=== PATIENT | male | born 1990 | race Hispanic/Latino ===

== ENCOUNTER 2017-01-03 00:23 | Emergency (ER) | payer OTHER ==
[2017-01-03 00:27] VITALS: BP 135/92; PULSE 66; RESP 18; TEMP 98; O2SAT 99
--- NOTE | 2017-01-03 01:41 | ED PDOC ---
HPI: Wound Care - HPI Chief Complaint (Provider): RIGHT forearm laceration x2 History Per: Patient Current Symptoms Are (Timing): Still Present Location Of Injury: Right: Arm (3cm superficial, distal laceration; 4-5cm deep with avulsion laceration proximal to superficial laceration ) Quality Of Symptoms: Painful Severity: Mild Pain Scale Rating Of: 3 Additional Complaint(s): 26M p/w RIGHT forearm laceration x2 occurring after a celebration resulted in a broken beer bottle accidentally lacerating his arm in 2 places. Otherwise, patient denies any numbness/tingling/weakness distal to the lacerations. PMH: None PSH: None Allergies: Amoxicillin (anaphylaxis) <Lashaun Albarado - Last Filed: 01/03/17 02:30> <Kaleb Miranda - Last Filed: 01/03/17 02:36> - HPI Time Seen by Provider: 01/03/17 00:27 Chief Complaint (Nursing): Abnormal Skin Integrity Supervising Attending Note - Attestation: I have personally seen and examined this patient.: Yes I have fully participated in the care of the patient.: Yes I have reviewed all pertinent clinical information, including history, physical exam and plan: Yes <Kaleb Miranda - Last Filed: 01/03/17 02:36> Past Medical History Vital Signs: Last Vital Signs Temp 36.6 C 01/03/17 00:24 Pulse 66 01/03/17 00:24 Resp 18 01/03/17 00:24 BP 135/92 H 01/03/17 00:24 Pulse Ox 99 01/03/17 00:24 - Medical History PMH: No Chronic Diseases - Surgical History Other surgeries: LEFT hand surgery - Family History Family History: States: No Known Family Hx <Lashaun Albarado - Last Filed: 01/03/17 02:30> Vital Signs: Last Vital Signs Temp 98 F 01/03/17 00:24 Pulse 66 01/03/17 00:24 Resp 18 01/03/17 00:24 BP 135/92 H 01/03/17 00:24 Pulse Ox 99 01/03/17 02:30 <Kaleb Miranda - Last Filed: 01/03/17 02:36> - Allergies Allergies/Adverse Reactions: Allergies Allergy/AdvReac Type Severity Reaction Status Date / Time amoxicillin Allergy RASH Verified 01/03/17 00:24 Review of Systems ROS Statement: Except As Marked, All Systems Reviewed And Found Negative Musculoskeletal: Positive for: Arm Pain <Lashaun Albarado - Last Filed: 01/03/17 02:30> - ECG O2 Sat by Pulse Oximetry: 99 <Lashaun Albarado - Last Filed: 01/03/17 02:30> Medical Decision Making Medical Decision MakinM with laceration, Plastic Surgery consult placed for evaluation given proximity to ulnar nerve distribution. - X-ray to r/o foreign body - Plastic Surgery Consult X-ray negative for foreign body Laceration repaired by Dr Bo (Plastic Surgery) <Lashaun Albarado - Last Filed: 01/03/17 02:30> Disposition - Patient ED Disposition Is Patient to be Admitted: No Discussed With : Celestino Bo Doctor Will See Patient In The: Office (10 days) Counseled Patient/Family Regarding: Studies Performed, Diagnosis, Need For Followup - Disposition Disposition: Routine/Home Disposition Time: 02:27 <Lashaun Albarado - Last Filed: 01/03/17 02:30> <Kaleb Miranda - Last Filed: 01/03/17 02:36> - Clinical Impression Clinical Impression: Laceration - Disposition Referrals: Celestino Bo [Family Provider] - (10 days) Condition: GOOD Additional Instructions: Keep wounds clean, dry Return to the ED if numbness/tingling in fingers, redness, fever Instructions: Care For Your Stitches (ED), Laceration (ED) Forms: SeeMe (Qatari) Print Language: CROATIAN
--- NOTE | 2017-01-03 10:43 | RAD ---
PROCEDURE: HISTORY: r/o foreign body COMPARISON: None TECHNIQUE: Standard protocol for this study/examination. FINDINGS: Focal soft tissue swelling adjacent to the midshaft of the ulna. No adjacent osseous abnormality. No visulaized radiopaque/visualized foreign body. IMPRESSION: Soft tissue swelling without acute articular or osseous abnormality. There is no foreign body identified on the current study.
== END 2017-01-03 02:30 | disposition home or self-care (01) ==
LOC: H.ER 00:23
DX: S51.811A Laceration without foreign body of right forearm, initial encounter (principal); W25.XXXA Contact with sharp glass, initial encounter; Y92.89 Other specified places as the place of occurrence of the external cause; Z88.0 Allergy status to penicillin